=== PATIENT | female | born 1995 | race Caucasian/White ===

== ENCOUNTER 2019-07-03 19:29 | Outpatient (CLI) | payer OTHER ==
[2019-07-03 20:52] LABS: ADD UMIC YES; UR ASCORBIC ACID NEGATIVE (NEGATIVE); UR BACTERIA FEW /HPF (NONE SEEN); UR BILIRUBIN (Dip) NEGATIVE (NEGATIVE); UR BLOOD (Dip) NEGATIVE (NEGATIVE); UR CALCIUM OXALATE CRYSTAL MODERATE /HPF (NONE SEEN); UR CLARITY CLOUDY (CLEAR); UR COLOR YELLOW (YELLOW); UR GLUCOSE (Dip) NEGATIVE (NEGATIVE); UR KETONES (Dip) NEGATIVE (NEGATIVE); UR LEUKOCYTE ESTERASE (Dip) 3+ Leu/ul (NEGATIVE); UR MUCUS FEW /HPF (NONE SEEN); UR NITRITE (Dip) NEGATIVE (NEGATIVE); UR RBC 5 /HPF (0-5); UR SPECIFIC GRAVITY (Dip) 1.018 (1.003-1.030); UR SQUAMOUS EPITHELIAL CELL MANY /HPF (FEW); UR TOTAL PROTEIN (Dip) NEGATIVE (NEGATIVE); UR UROBILINOGEN (Dip) NEGATIVE (NEGATIVE); UR WBC 120 /HPF (0-5)
[2019-07-03] MEDS: CEFTRIAXONE 1 GM INJ IM (22:53)
[2019-07-03] MEDS: LIDOCAINE 1% (MDV) 20 ML INJ IM (22:53)
== END 2019-07-03 22:59 | disposition home or self-care (01) ==
LOC: OBT 19:29 → L-D 19:29 → OBT 22:59
DX: O62.9 Abnormality of forces of labor, unspecified (principal); Z3A.37 37 weeks gestation of pregnancy
CPT/HCPCS: 81001; 87086; 96372

== ENCOUNTER 2019-07-13 11:29 | Inpatient (IN) | payer OTHER ==
[2019-07-13] MEDS ORDERED: MISOPROSTOL 50 MCG CAPSULE PO (14:30)
[2019-07-13] MEDS ORDERED: METHYLERGONOVINE 0.2 MG INJ IM (14:30)
[2019-07-13] MEDS ORDERED: LIDOCAINE 1% (MPF) 30 ML INJ INJ (14:30)
[2019-07-13] MEDS ORDERED: MISOPROSTOL 200 MCG TAB PR (14:30)
[2019-07-13] MEDS ORDERED: BUTORPHANOL 2 MG INJ IV (14:30)
[2019-07-13] MEDS ORDERED: CARBOPROST 250 MCG INJ IM (14:30)
[2019-07-13] MEDS ORDERED: OXYTOCIN 30 UNITS/LR 500 ML IV ×2 (14:30)
[2019-07-13] MEDS: LACTATED RINGER'S 1,000 ML IV ×2 (15:01→21:24)
[2019-07-13 15:32] LABS: ADD MAN DIFF? NO
[2019-07-13 15:35] LABS: BASOPHILS % 0.1 % (0.0-2.0); EOSINOPHILS # 0.1 10^3/ul (0.0-0.5); EOSINOPHILS % 0.6 % (0.0-7.0); HEMOGLOBIN 10.7 g/dl (12.0-16.0); LYMPHOCYTES % 18.9 % (15.0-51.0); MEAN CORPUSCULAR HEMOGLOBIN 25.3 pg (29.0-33.0); MEAN CORPUSCULAR HGB CONC 31.5 g/dl (32.0-37.0); MEAN CORPUSCULAR VOLUME 80.4 fl (82.0-101.0); MEAN PLATELET VOLUME 12.4 fl (7.4-10.4); MONOCYTE # 0.5 10^3/ul (0.3-0.9); MONOCYTES % 4.8 % (0.0-11.0); NEUTROPHIL # 7.8 10^3/ul (1.6-7.5); NEUTROPHILS % 74.8 % (39.0-77.0); PLATELET COUNT 232 10^3/UL (140-415); RED BLOOD COUNT 4.23 10^6/ul (4.20-5.40)
[2019-07-13 15:35] LABS: WHITE BLOOD COUNT 10.4 10^3/ul (4.8-10.8)
[2019-07-13 15:54] LABS: INR 0.87; PROTIME 11.9 Sec (11.9-14.9); PT RATIO 0.9
[2019-07-13 15:55] LABS: PARTIAL THROMBOPLASTIN TIME 28.7 Sec (23.0-35.0)
[2019-07-13] MEDS: MISOPROSTOL 50 MCG CAPSULE PO ×2 (16:38→22:07)
[2019-07-13 16:45] LABS: HEPATITIS B SURFACE ANTIGEN NEGATIVE (NEGATIVE)
[2019-07-14] MEDS: MISOPROSTOL 50 MCG CAPSULE PO ×4 (03:37→18:12)
[2019-07-14] MEDS: LACTATED RINGER'S 1,000 ML IV ×3 (05:37→23:18)
[2019-07-14 15:34] LABS: RAPID PLASMA REAGIN NONREACTIVE (NR)
[2019-07-14] MEDS ORDERED: OXYTOCIN 30 UNITS/LR 500 ML IV (20:00)
[2019-07-14] MEDS: OXYTOCIN 30 UNITS/LR 500 ML IV (21:59)
[2019-07-15] MEDS: LACTATED RINGER'S 1,000 ML IV (06:45)
[2019-07-15] MEDS: BUTORPHANOL 2 MG INJ IV (06:47)
[2019-07-15] MEDS ORDERED: LACTATED RINGER'S 1,000 ML IV* (08:25)
[2019-07-15] MEDS ORDERED: CARBOPROST 250 MCG INJ IM (08:30)
[2019-07-15] MEDS ORDERED: HYDROCODONE/APAP (5/325) TAB PO (08:30)
[2019-07-15] MEDS ORDERED: METHYLERGONOVINE 0.2 MG INJ IM (08:30)
[2019-07-15] MEDS ORDERED: OXYTOCIN 30 UNITS/LR 500 ML IV (08:30)
[2019-07-15] MEDS ORDERED: MISOPROSTOL 200 MCG TAB PR (08:30)
[2019-07-15] MEDS: OXYTOCIN 30 UNITS/LR 500 ML IV ×2 (08:44→12:56)
[2019-07-15] MEDS: IBUPROFEN 600 MG TAB PO ×2 (12:00→18:00)
[2019-07-15] MEDS: LANOLIN HPA 1 PKT TOP (17:51)
[2019-07-15] MEDS: BENZOCAINE 20% 56 ML SPRAY TOP (17:51)
[2019-07-16] MEDS: IBUPROFEN 600 MG TAB PO ×5 (00:36→23:44)
[2019-07-16 08:19] LABS: ADD MAN DIFF? NO
[2019-07-16 08:28] LABS: BASOPHILS % 0.2 % (0.0-2.0); EOSINOPHILS # 0.3 10^3/ul (0.0-0.5); EOSINOPHILS % 2.8 % (0.0-7.0); HEMATOCRIT 31.3 % (37.0-47.0); HEMOGLOBIN 9.8 g/dl (12.0-16.0); LYMPHOCYTES # 2.2 10^3/ul (0.8-2.9); LYMPHOCYTES % 22.1 % (15.0-51.0); MEAN CORPUSCULAR HEMOGLOBIN 25.5 pg (29.0-33.0); MEAN CORPUSCULAR HGB CONC 31.3 g/dl (32.0-37.0); MEAN CORPUSCULAR VOLUME 81.5 fl (82.0-101.0); MEAN PLATELET VOLUME 12.1 fl (7.4-10.4); MONOCYTE # 0.6 10^3/ul (0.3-0.9); NEUTROPHIL # 6.8 10^3/ul (1.6-7.5); NEUTROPHILS % 68.2 % (39.0-77.0); PLATELET COUNT 229 10^3/UL (140-415); RED BLOOD COUNT 3.84 10^6/ul (4.20-5.40); RED CELL DISTRIBUTION WIDTH 15.9 % (11.5-14.5)
[2019-07-16] MEDS: ASCORBIC ACID 500 MG TAB PO (09:46)
[2019-07-16] MEDS: FERROUS SULFATE (EC) 325 MG TAB PO (09:46)
[2019-07-17] MEDS: IBUPROFEN 600 MG TAB PO ×2 (05:46→12:00)
[2019-07-17] MEDS: FERROUS SULFATE (EC) 325 MG TAB PO (09:44)
[2019-07-17] MEDS: ASCORBIC ACID 500 MG TAB PO (09:44)
[2019-07-17] MEDS: DIPHTH/TET/ACEL PERTUSS (ADULT) 0.5 ML VIAL IM* (12:34)
== END 2019-07-17 14:12 | disposition home or self-care (01) | DRG 807 ==
LOC: OBT 11:29 → PP1 07-15 10:02 → L-D 11:29 → OBT 14:00 → L-D 14:09
PROVIDERS: Obstetrics & Gynecology
PROC: 10E0XZZ Delivery of Products of Conception, External Approach (ICD-10-PCS; principal; 2019-07-15)
DX: O80 Encounter for full-term uncomplicated delivery (principal); Z37.0 Single live birth; Z3A.38 38 weeks gestation of pregnancy
CPT/HCPCS: 76815; 76818; 85025; 85610; 85730; 86592; 86850; 86900; 86901; 87340; 90715